=== PATIENT | female | born 2005 | race Caucasian/White ===

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

== ENCOUNTER 2024-09-19 14:40 | Emergency (ER) | payer SELFPAY ==
[~2024-09-19] VITALS: Ht 167.6 cm; Wt 114.0 kg
[2024-09-19 14:46] VITALS: O2SAT 96
[2024-09-19 15:23] LABS: BASOPHILS % 0.4 % (0.0-2.0); EOSINOPHILS % 2.7 % (0.0-5.0); HEMATOCRIT. 40.7 % (36.0-48.0); HEMOGLOBIN. 14.3 g/dL (12.0-16.0); LYMPHOCYTES % 30.5 % (20.0-50.0); MEAN CORPUSCULAR HEMOGLOBIN 28.5 pg (28.0-32.0); MEAN CORPUSCULAR HGB CONC 35.3 g/dL (31.0-37.0); MEAN CORPUSCULAR VOLUME 80.7 fL (81.0-99.0); MEAN PLATELET VOLUME 9.2 fl (7.4-10.4); NEUTROPHILS % 60.4 % (40.0-76.0); PLATELET 322 x1000/uL (130-400); RED BLOOD CELL COUNT 5.04 mill/uL (4.2-5.4); RED CELL DISTRIBUTION WIDTH 13.3 % (11.6-14.6); WHITE BLOOD COUNT 12.9 x1000/uL (4.5-11.0)
[2024-09-19 15:29] LABS: D-DIMER 0.25 mg/L FEU (<0.50); INR 0.9; PROTHROMBIN TIME 10.1 sec (9.6-11.0)
[2024-09-19 15:30] LABS: CARBON DIOXIDE 26 mEq/L (21-32); CHLORIDE 105 mEq/L (98-107); POTASSIUM 3.8 mEq/L (3.5-5.1); SODIUM 139 mEq/L (136-145)
[2024-09-19 15:31] LABS: CALCIUM 9.2 mg/dL (8.7-10.4)
[2024-09-19 15:36] LABS: CREATININE 0.9 mg/dL (0.6-1.0); GLUCOSE 92 mg/dL (70-105); UREA NITROGEN BLOOD 13 mg/dL (9-23)
[2024-09-19 15:38] LABS: HCG SCREEN NEGATIVE
[2024-09-19 15:48] LABS: TROPONIN I HIGH SENSITIVITY < 4 ng/L (3.0-34)
[2024-09-19 16:50] LABS: TROPONIN I HIGH SENSITIVITY 10 ng/L (3.0-34)
[2024-09-19 17:04] VITALS: BP 157/93; PULSE 113; RESP 26; TEMP 36.9; O2SAT 99
== END 2024-09-19 17:27 | disposition home or self-care (01) ==
LOC: ER 14:44
DX: I47.10 Supraventricular tachycardia, unspecified (principal); R00.2 Palpitations; R03.0 Elevated blood-pressure reading, without diagnosis of hypertension; F17.200 Nicotine dependence, unspecified, uncomplicated; I48.91 Unspecified atrial fibrillation; J45.909 Unspecified asthma, uncomplicated; F12.90 Cannabis use, unspecified, uncomplicated; Z79.899 Other long term (current) drug therapy
CPT/HCPCS: 36415; 71045; 80048; 83735; 83880; 84484; 84703; 85025; 85379; 93005; 99285